=== PATIENT | female | born 1980 | race Caucasian/White ===

== ENCOUNTER 2016-06-04 15:32 | Emergency (ER) | payer OTHER ==
[~2016-06-04] VITALS: Ht 160 cm; Wt 74.0 kg
[2016-06-04 15:43] VITALS: BP 127/59
--- NOTE | 2016-06-04 17:55 | NUR ---
PT TO BED 6 AT THIS TIME
--- NOTE | 2016-06-04 18:00 | NUR ---
36/F BIB SELF C/O ABDOMINAL PAIN x 3 WEEKS. PT STATES PAIN RADIATES TO BILATERAL FLANK. PT WAS SEEN BY PMD LAST WEEK SATURDAY. PT STATES NO NVD. SKIN IS PINK/WARM/DRY; AAOX4 WITH EVEN AND STEADY GAIT; LUNGS CLEAR BL; HR EVEN AND REGULAR; PT DENIES ANY FEVER, CP OR SOB AT THIS TIME; PATIENT STATES PAIN OF 7/10 AT THIS TIME; VSS; PATIENT POSITIONED FOR COMFORT; HOB ELEVATED; BEDRAILS UP X2; BED DOWN. ER MD MADE AWARE OF PT STATUS.
--- NOTE | 2016-06-04 18:05 | NUR ---
ER MD DR WANG EVALUATING PT AT BEDSIDE
[2016-06-04] MEDS ORDERED: IBUPROFEN 800 MG TAB PO ONE (18:40)
[2016-06-04 19:05] VITALS: BP 102/70
--- NOTE | 2016-06-04 19:05 | NUR ---
Patient discharged with v/s stable. Written and verbal after care instructions given and explained. Patient alert, oriented and verbalized understanding of instructions. Ambulatory with steady gait. All questions addressed prior to discharge. ID band removed. Patient advised to follow up with PMD. Rx of MIRALAX & TRAMADOL given. Patient educated on indication of medication including possible reaction and side effects. Opportunity to ask questions provided and answered.
== END 2016-06-04 17:05 | disposition home or self-care (01) ==
LOC: MED 15:32
DX: N39.0 Urinary tract infection, site not specified (principal); K59.00 Constipation, unspecified; R03.0 Elevated blood-pressure reading, without diagnosis of hypertension
CPT/HCPCS: 74022; 81002; 81025; 99283